=== PATIENT | male | born 1990 | race Caucasian/White ===

== ENCOUNTER 2019-12-20 19:50 | Emergency (ER) | payer MEDICAID ==
[~2019-12-20] VITALS: Ht 160 cm; Wt 73.9 kg
[2019-12-20 19:58] VITALS: BP 144/101; Ht 160 cm; Wt 73.9 kg
== END 2019-12-20 20:39 | disposition home or self-care (01) ==
LOC: ED 19:50
DX: L02.11 Cutaneous abscess of neck (principal)
CPT/HCPCS: J2001

== ENCOUNTER 2019-12-23 13:13 | Emergency (ER) | payer MEDICAID ==
[~2019-12-23] VITALS: Ht 157.5 cm; Wt 73.5 kg
[2019-12-23 13:45] VITALS: BP 134/79; Ht 157.5 cm; Wt 73.5 kg
== END 2019-12-23 14:00 | disposition home or self-care (01) ==
LOC: ED 13:13
DX: L02.11 Cutaneous abscess of neck (principal); Z48.01 Encounter for change or removal of surgical wound dressing